=== PATIENT | female | born 1980 | race Caucasian/White ===

== ENCOUNTER 2018-01-20 21:42 | Emergency (ER) | payer BC ==
[2018-01-20] MEDS ORDERED: ZIPRASIDONE MESYLA 20 MG/VIAL IM ONE (21:47)
[2018-01-20 23:01] LABS: Urine Blood NEGATIVE (NEG); Urine Glucose NEGATIVE (NEG); Urine Protein TRACE (NEG); Urine Specific Gravity 1.015 (1.005-1.030)
[2018-01-20 23:06] LABS: Barbiturates NEGATIVE; Benzodiazepines NEGATIVE; Cocaine NEGATIVE; Opiates NEGATIVE; Phencyclidine NEGATIVE; THC Cannibis POSITIVE
[2018-01-20 23:10] LABS: Absolute Lymphocytes (CBC) 1.4 K/uL (0.7-4.9); Absolute Monocytes 0.4 K/uL (0.1-1.3); Absolute Neutrophil 2.4 K/uL (1.8-8.0); Basophils % 1.6 % (0-1.3); Eosinophils % 3.9 % (0-4.4); Hematocrit 34.8 % (36.0-45.0); Lymphocytes % 30.8 % (15.3-44.8); MCH 30.7 pg (27.0-35.0); MCV 89.3 fL (80-100); MPV 8.1 fL (7.6-11.3)
[2018-01-20 23:13] LABS: Protime INR 0.95
[2018-01-20 23:15] LABS: Bicarbonate 23 mEq/L (21-31); Glucose Level 123 mg/dL (65-120); Potassium 3.1 mEq/L (3.6-5.0); Sodium Level 139 mEq/L (135-145)
[2018-01-20 23:15] LABS: METHAMPHETAM POSITIVE (NEGATIVE)
[2018-01-20 23:20] LABS: ALT/SGPT 19 IU/L (10-60); AST/SGOT 26 IU/L (10-42); Albumin 4.4 g/dL (3.2-5.5); Alkaline Phosphatase 73 IU/L (42-121); BUN Blood Urea Nitrogen 15 mg/dL (6-20); Bilirubin Direct < 0.1 mg/dL (0-0.2); Bilirubin Total 0.3 mg/dL (0.3-1.2); Protein, Total 7.4 g/dL (6.0-8.3)
[2018-01-20 23:35] LABS: Alcohol Serum/Plasma 87 mg/dl
[2018-01-21] MEDS ORDERED: POTASSIUM CL SA 10 MEQ TAB PO ONE ×2 (03:45→03:48)
[2018-01-21] MEDS ORDERED: MAGNE/ALUM HYDROXD 30 ML UCUP ONE (07:15)
[2018-01-21] MEDS ORDERED: LIDOCAINE VISCOUS 2% SOLN 15 ML UDC ONE (07:16)
[2018-01-21] MEDS ORDERED: NICOTINE 21 MG/PAT TD ONE (07:50)
[2018-01-21] MEDS ORDERED: NA CHLORIDE 0.9% 500 ML ONE (09:02)
[2018-01-21] MEDS ORDERED: DIAZEPAM 5 MG TABLET ONE (10:10)
--- NOTE | 2018-01-21 10:57 | ER ---
Nurse's Notes [facility] Name: Promise Miller Age: 37 yrs Sex: Female : 1980 Arrival Date: 01/20/2018 Time: 21:44 Bed 18 Private MD: Diagnosis: Suicidal ideations Presentation: 01/20 21:58 Presenting complaint: EMS states: Family called EMS reported she attempted to cut ea herself with a knife, superficial scratches to neck. EMS reports pt has been drinking and had a suicide attempt last week. Transition of care: patient was not received from another setting of care. Onset of symptoms was January 20, 2018. Risk Assessment: Do you want to hurt yourself or someone else? Patient reports desire/thoughts of hurting themselves or someone else. Provider notified. Initial Sepsis Screen: Does the patient meet any 2 criteria? No. Patient's initial sepsis screen is negative. Does the patient have a suspected source of infection? No. Patient's initial sepsis screen is negative. Care prior to arrival: None. 21:58 Method Of Arrival: EMS: [facility] ea 21:58 Acuity: STEFANIA 2 ea Triage Assessment: 21:58 General: Appears uncomfortable, Behavior is agitated, anxious, crying. Pain: Unable to ea use pain scale. pt screaming, restless and anxious. Refuses to answer questions. EENT: No deficits noted. Neuro: Level of Consciousness is awake, alert, obeys commands, Oriented to person, place, time. Cardiovascular: Patient's skin is warm and dry. Respiratory: Airway is patent Respiratory effort is even, unlabored, Respiratory pattern is regular, symmetrical. GI: No deficits noted. : No deficits noted. Derm: Skin is pink, warm \\T\\ dry. Musculoskeletal: No deficits noted. Injury Description: abrasion to neck. 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 ea Historical: - Allergies: 01/20 22:17 Aspirin; ea 22:17 Macrobid; ea 22:17 Sulfa (Sulfonamide Antibiotics); ea - Home Meds: 01/21 10:58 None [Active]; jl7 - PMHx: 01/20 22:17 gastric ulcers; Kidney stones; PE; ea - PSHx: 01/21 10:58 Hysterectomy; jl7 - Immunization history:: Adult Immunizations up to date. - Ebola Screening: : No symptoms or risks identified at this time. - Social history:: Smoking status: Patient uses tobacco products, smokes one pack cigarettes per day. Screenin/04 22:19 Abuse screen: Denies threats or abuse. Nutritional screening: No deficits noted. ea Tuberculosis screening: No symptoms or risk factors identified. Fall Risk None identified. Assessment: 23:10 Reassessment: Pt calm and cooperative at this time. Pt verbalized she does not want to ea harm herself or others at this time. Pt reports she is sleepy. Respirations even and unlabored, chest expansions even and symmetrical. No s/s of pain or discomfort noted at this time. 01/21 00:45 Reassessment: Patient and/or family updated on plan of care and expected duration. Pain ea level reassessed. Pt resting with eyes closed, respirations even and unlabored, chest expansions even and symmetrical. No s/s of pain or discomfort noted at this time. 02:35 Reassessment: Patient and/or family updated on plan of care and expected duration. Pain ea level reassessed. Pt resting with eyes closed, respirations even and unlabored, chest expansions even and symmetrical. No s/s of pain or discomfort noted at this time. 03:20 Reassessment: Patient and/or family updated on plan of care and expected duration. Pain ea level reassessed. Pt resting with eyes closed, respirations even and unlabored, chest expansions even and symmetrical. No s/s of pain or discomfort noted at this time. 04:26 Reassessment: Patient and/or family updated on plan of care and expected duration. Pain ea level reassessed. Pt resting with eyes closed, respirations even and unlabored, chest expansions coty and symmetrical. 05:12 Reassessment: Patient and/or family updated on plan of care and expected duration. Pain ea level reassessed. Pt resting with eyes closed, respirations even and unlabored, chest expansions even and symmetrical. 06:47 Reassessment: Patient and/or family updated on plan of care and expected duration. Pain ea level reassessed. Pt resting with eyes closed, respirations even and unlabored, chest expansions even even and symmetrical. No s/s of pain or discomfort noted at this time. 07:00 Reassessment: Patient and/or family updated on plan of care and expected duration. Pain jl7 level reassessed. Pt reports epigastric pain, reports having a history of gastric ulcers, pain rated 7/10 at this time. Provider notified, see MAR for orders. 07:10 Reassessment: [facility] personnel at bedside. jl7 08:45 Reassessment: Pt reports urinary frequency, denies burning, provider notified and jl7 ordered a 500 NS bolus. 10:00 Reassessment: Pt states "I feel like I'm about to have a panic attack. Can y'all give jl7 me something to calm my nerves." Provider notified, see MAR for orders. 10:43 Reassessment: Nurse- to- Nurse given Anna from [facility], Anna reports she jl7 will set up doc to doc to have pt transferred. 11:50 Reassessment: EMS at bedside to transfer pt. jl7 Psych: 01/20 21:50 Objective: Patient is. Interventions: Removed personal items and placed in bag. Patient ea placed in hospital gown. Searched person for dangerous items. Urine collected and sent for urine drug test. Suicide Risk Assessment: Sad Person Scale: Sex of patient: Female: Score 0 points. Age of patient: Score 1 point if patient 15-34. Depression: Score 1 point if signs of depression are present. Previous Attempt: Score 1 point if patient has previously attempted suicide. Substance Abuse: Score 1 point if patient abuses alcohol or drugs. Rational Thinking: Score 0 point if patient has rational thinking. Social Support: Score 1 point if social support is lacking and/or unavailable. Organized Plan: Score 1 point if patient had a plan in place. Relationship: Score 0 point if patient has a spouse or domestic partner. Chronic Sickness: Score 0 point if patient does not have a chronic illness, debilitating, or severe disorder. Safety Checks: Personal items have been removed. Door is open. No visitors are present at this time. Patient uses. 21:50 Subjective: Patient's mood is irritable, Delusions are denied, Hallucinations are ea denied Having thoughts of suicide. Denies suicidal plan. Objective: Patient is uncooperative, belligerent, restless, Speech is loud, Affect is inappropriate, Patient has mutilated themselves by was reported pt used knife to cut herself. 01/21 12:04 Commitment: Patient will be a voluntary commitment. jl7 Vital Signs: 01/20 22:23 BP 150 / 90; Pulse 118; Resp 19; Pulse Ox 98% on R/A; ea 23:36 BP 146 / 71; Pulse 75; Resp 16; Temp 98.6; Pulse Ox 100% on R/A; mw2 06 02:09 BP 128 / 72; Pulse 74; Resp 16; Temp 97.9; Pulse Ox 100% on R/A; mw2 06:10 BP 133 / 81; Pulse 58; Resp 17 S; Temp 98; Pulse Ox 98% ; ea 07:30 BP 124 / 72; Pulse 68; Resp 18; Temp 98.6(O); Pulse Ox 98% on R/A; mh5 11:37 BP 122 / 74; Pulse 58; Resp 16; Temp 98.1(O); Pulse Ox 99% on R/A; mh5 ED Course: 01/20 21:44 Patient arrived in ED. am2 21:44 Patient has correct armband on for positive identification. Placed in gown. Bed in low ea position. Call light in reach. Side rails up X2. 22:00 Inserted saline lock: 22 gauge in left forearm, using aseptic technique. Blood ea collected. 22:05 Jailyn Pritchett RN is Primary Nurse. ea 22:14 Yahir Thacker NP is PHCP. pm1 22:14 William Santo MD is Attending Physician. pm1 22:16 Triage completed. ea 22:26 Arm band placed on right wrist. ea 23:25 Safety checks: Items removed: yes. Door open/sign placed on door: yes. Family/friend mw2 present: no. 23:40 Safety checks: Items removed: yes. Door open/sign placed on door: yes. Family/friend mw2 present: no. 23:55 Safety checks: Items removed: yes. Door open/sign placed on door: yes. Family/friend mw2 present: no. 01/21 00:15 Safety checks: Items removed: yes. Door open/sign placed on door: yes. Family/friend mw2 present: no. 00:30 Safety checks: Items removed: yes. Door open/sign placed on door: yes. Family/friend mw2 present: no. 00:45 Safety checks: Items removed: yes. Door open/sign placed on door: yes. Family/friend mw2 present: no. 01:02 Safety checks: Items removed: yes. Door open/sign placed on door: yes. Family/friend mw2 present: no. 01:17 Safety checks: Items removed: yes. Door open/sign placed on door: yes. Family/friend mw2 present: no. 01:38 Safety checks: Items removed: yes. Door open/sign placed on door: yes. Family/friend mw2 present: no. 01:53 Safety checks: Items removed: yes. Door open/sign placed on door: yes. Family/friend mw2 present: no. 02:08 Safety checks: Items removed: yes. Door open/sign placed on door: yes. Family/friend mw2 present: no. 02:23 Safety checks: Items removed: yes. Door open/sign placed on door: yes. Family/friend mw2 present: no. 02:38 Safety checks: Items removed: yes. Door open/sign placed on door: yes. Family/friend mw2 present: no. 02:53 Safety checks: Items removed: yes. Door open/sign placed on door: yes. Family/friend mw2 present: no. 03:07 Safety checks: Items removed: yes. Door open/sign placed on door: yes. Family/friend mw2 present: no. 03:17 [facility] notified[facility] 03:22 Safety checks: Items removed: yes. Door open/sign placed on door: yes. Family/friend mw2 present: no. 03:37 Safety checks: Items removed: yes. Door open/sign placed on door: yes. Family/friend mw2 present: no. 03:52 Safety checks: Items removed: yes. Door open/sign placed on door: yes. Family/friend mw2 present: no. 04:07 Safety checks: Items removed: yes. Door open/sign placed on door: yes. Family/friend mw2 present: no. 04:20 Safety checks: Items removed: yes. Door open/sign placed on door: yes. Family/friend mw2 present: no. 04:35 Safety checks: Items removed: yes. Door open/sign placed on door: yes. Family/friend mw2 present: no. 04:47 Safety checks: Items removed: yes. Door open/sign placed on door: yes. Family/friend mw2 present: no. 05:02 Safety checks: Items removed: yes. Door open/sign placed on door: yes. Family/friend mw2 present: no. 05:17 Safety checks: Items removed: yes. Door open/sign placed on door: yes. Family/friend mw2 present: no. 05:32 Safety checks: Items removed: yes. Door open/sign placed on door: yes. Family/friend mw2 present: no. 05:46 Safety checks: Items removed: yes. Door open/sign placed on door: yes. Family/friend mw2 present: no. 07:00 Safety checks: Items removed: yes. Door open/sign placed on door: yes. Family/friend mh5 present: no. 07:04 Report given to Syeda LUIS ea 07:15 Safety Checks: Personal items have been removed. The door is open or patient has been jl7 placed in a hallway bed/chair. A family member and/or friend is present and encouraged to stay. [facility] personnel at bedside Sitter present at this time. 07:30 Safety checks: Items removed: yes. Door open/sign placed on door: yes. Family/friend mh5 present: no. 07:45 Safety checks: Items removed: yes. Door open/sign placed on door: yes. Family/friend mh5 present: no. 08:00 Safety checks: Items removed: yes. Door open/sign placed on door: yes. Family/friend mh5 present: no. 08:15 Safety checks: Items removed: yes. Door open/sign placed on door: yes. Family/friend mh5 present: no. 08:30 Safety checks: Items removed: yes. Door open/sign placed on door: yes. Family/friend mh5 present: no. 08:45 Safety checks: Items removed: yes. Door open/sign placed on door: yes. Family/friend mh5 present: no. 09:00 Safety checks: Items removed: no. Reason for not removing items: Door open/sign placed mh5 on door: yes. Family/friend present: no. 09:15 Safety checks: Items removed: yes. Door open/sign placed on door: yes. Family/friend mh5 present: no. 09:30 Safety checks: Items removed: yes. Door open/sign placed on door: yes. Family/friend mh5 present: no. 09:45 Safety checks: Items removed: yes. Door open/sign placed on door: yes. Family/friend mh5 present: no. 10:00 Safety checks: Items removed: yes. Door open/sign placed on door: yes. Family/friend mh5 present: no. 10:15 Safety checks: Items removed: yes. Door open/sign placed on door: yes. Family/friend mh5 present: no. 10:30 Safety checks: Items removed: yes. Door open/sign placed on door: yes. Family/friend mh5 present: no. 10:44 nurse to nurse done with [facility]. bd 10:45 Safety checks: Items removed: yes. Door open/sign placed on door: yes. Family/friend mh5 present: no. 10:56 Attending Physician role handed off by William Santo MD rn 10:56 Alhaji King MD is Attending Physician. rn 11:00 Safety checks: Items removed: yes. Door open/sign placed on door: yes. Family/friend mh5 present: no. 11:15 Safety checks: Items removed: yes. Door open/sign placed on door: yes. Family/friend mh5 present: no. 11:30 Safety checks: Items removed: yes. Door open/sign placed on door: yes. Family/friend mh5 present: no. 11:45 Safety checks: Items removed: yes. Door open/sign placed on door: yes. Family/friend mh5 present: no. 12:04 No provider procedures requiring assistance completed. IV discontinued, intact, jl7 bleeding controlled, No redness/swelling at site. Pressure dressing applied. Administered Medications: 01/20 22:00 Drug: Geodon 10 mg Route: IM; Site: right deltoid; ea 22:41 Follow up: Response: No adverse reaction; Marked relief of symptoms ea 01/21 04:16 Drug: Potassium Chloride 40 mEq Route: PO; ea 07:16 Follow up: Response: No adverse reaction jl7 07:30 Drug: GI Cocktail without - (Maalox Suspension 30 ml, Lidocaine Liquid 2 % 15 jl7 ml) Route: PO; 08:00 Follow up: Response: No adverse reaction; Pain is decreased jl7 07:59 Drug: Nicoderm CQ 21 mg/24 hr 1 patches Route: Transdermal; Site: affected area; jl7 12:03 Follow up: Response: No adverse reaction jl7 09:00 Drug: NS 0.9% 500 ml Route: IV; Rate: bolus; Site: left forearm; jl7 09:45 Follow up: Response: No adverse reaction; IV Status: Completed infusion jl7 10:16 Drug: Valium 5 mg Route: PO; jl7 11:15 Follow up: Response: No adverse reaction; Marked relief of symptoms jl7 Outcome: 10:57 ER care complete, transfer ordered by . rn 12:03 Transferred by ground EMS to other acute care facility, Transfer form completed. Note: [address] [facility] 12:03 Condition: stable 12:03 Discharge instructions given to patient, Instructed on the need for transfer, Demonstrated understanding of instructions. 12:04 Patient left the ED. [facility] Signatures: Diya Oleary Rayburn rg2 Alhaji King MD MD rn Marinas, Patrick, NP [employer]QU[employer]UTTER pm1 Alissa العراقي 5 Syeda Parra RN RN jl7 Moreno, Amanda am2 Antunez, Elena, RN RN ea Westbrook, MyKena mw2 Corrections: (The following items were deleted from the chart) 01/20 22:16 21:58 Presenting complaint: ea ea 01/21 01:00 00:59 Safety checks: Items removed: yes. Door open/sign placed on door: yes. mw2 Family/friend present: no. mw2 07:42 07:41 BP 124 / 72; Pulse 68bpm; Resp 18bpm; Pulse Ox 98% RA; Temp 98.6F Oral; mh5 mh5
--- NOTE | 2018-01-21 10:57 | EDPHYS ---
Physician Documentation [facility] Name: Promise Miller Age: 37 yrs Sex: Female : 1980 Arrival Date: 01/20/2018 Time: 21:44 Bed 18 Private MD: ED Physician Alhaji King HPI: 01/21 02:18 This 37 yrs old Female presents to ER via EMS with complaints of Suicidal tw4 Ideation. 02:18 The patient presents to the emergency department with suicide ideation, and the patient tw4 has a plan, to cut oneself and bleed. Onset: The symptoms/episode began/occurred today. Associated signs and symptoms: The patient has no apparent associated signs or symptoms. Severity of symptoms: At their worst the symptoms were moderate in the emergency department the symptoms are unchanged. Unable to obtain HPI due to patient is being uncooperative. 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 ea Historical: - Allergies: 01/20 22:17 Aspirin; ea 22:17 Macrobid; ea 22:17 Sulfa (Sulfonamide Antibiotics); ea - Home Meds: 01/21 10:58 None [Active]; jl7 - PMHx: 01/20 22:17 gastric ulcers; Kidney stones; PE; ea - PSHx: 01/21 10:58 Hysterectomy; jl7 - Immunization history:: Adult Immunizations up to date. - Ebola Screening: : No symptoms or risks identified at this time. - Social history:: Smoking status: Patient uses tobacco products, smokes one pack cigarettes per day. ROS: 02:18 Constitutional: Negative for fever, chills, and weight loss, Cardiovascular: Negative tw4 for chest pain, palpitations, and edema, Respiratory: Negative for shortness of breath, cough, wheezing, and pleuritic chest pain, Abdomen/GI: Negative for abdominal pain, nausea, vomiting, diarrhea, and constipation, Back: Negative for injury and pain, Skin: Negative for injury, rash, and discoloration, Neuro: Negative for headache, weakness, numbness, tingling, and seizure. 02:20 Psych: Positive for drug dependence, suicidal ideation. tw4 Exam: 02:20 Head/Face: Normocephalic, atraumatic. Chest/axilla: Normal chest wall appearance and tw4 motion. Nontender with no deformity. No lesions are appreciated. Cardiovascular: Regular rate and rhythm with a normal S1 and S2. No gallops, murmurs, or rubs. Normal PMI, no JVD. No pulse deficits. Respiratory: Lungs have equal breath sounds bilaterally, clear to auscultation and percussion. No rales, rhonchi or wheezes noted. No increased work of breathing, no retractions or nasal flaring. MS/ Extremity: Pulses equal, no cyanosis. Neurovascular intact. Full, normal range of motion. Neuro: Awake and alert, GCS 15, oriented to person, place, time, and situation. Cranial nerves II-XII grossly intact. Motor strength 5/5 in all extremities. Sensory grossly intact. Cerebellar exam normal. Normal gait. 02:20 Constitutional: The patient appears agitated, unkempt. 02:20 Neck: External neck: abrasion(s), superficial, of the thyroid cartilage, left aspect of thyroid and left sternocleidomastoid. Vital Signs: 01/20 22:23 BP 150 / 90; Pulse 118; Resp 19; Pulse Ox 98% on R/A; ea 23:36 BP 146 / 71; Pulse 75; Resp 16; Temp 98.6; Pulse Ox 100% on R/A; mw2 01/21 02:09 BP 128 / 72; Pulse 74; Resp 16; Temp 97.9; Pulse Ox 100% on R/A; mw2 06:10 BP 133 / 81; Pulse 58; Resp 17 S; Temp 98; Pulse Ox 98% ; ea 07:30 BP 124 / 72; Pulse 68; Resp 18; Temp 98.6(O); Pulse Ox 98% on R/A; mh5 11:37 BP 122 / 74; Pulse 58; Resp 16; Temp 98.1(O); Pulse Ox 99% on R/A; mh5 MDM: 01/20 22:14 Patient medically screened. pm1 01/21 10:56 Differential diagnosis: depression, suicidal ideation. rn 10:56 Data reviewed: vital signs, nurses notes, lab test result(s), EKG, and as a result, I rn will admit patient. Counseling: I had a detailed discussion with the patient and/or guardian regarding: the historical points, exam findings, and any diagnostic results supporting the discharge/admit diagnosis, lab results, the need to transfer to another facility. ED course: Accepted for transfer to [facility] by Dr. Ellis.. 01/20 22:14 Order name: Acetaminophen; Complete Time: 07:12 pm01/20 22:14 Order name: Basic Metabolic Panel; Complete Time: 07:12 pm01/20 22:14 Order name: CBC with Diff; Complete Time: 07:12 pm01/20 22:14 Order name: ETOH Level; Complete Time: 07:12 pm01/20 22:14 Order name: Hepatic Function; Complete Time: 07:12 pm01/20 22:14 Order name: PT-INR; Complete Time: 07:12 pm01/20 22:14 Order name: Ptt, Activated; Complete Time: 07:12 pm01/20 22:14 Order name: Salicylate; Complete Time: 07:12 pm01/20 22:14 Order name: Urine Drug Screen; Complete Time: 07:12 pm01/20 22:28 Order name: Urine Dipstick--Ancillary (enter results); Complete Time: 07:12 rg01/20 22:28 Order name: Urine --Ancillary (enter results); Complete Time: 07:12 rg01/21 07:44 Order name: Potassium; Complete Time: 10:07 01/20 22:14 Order name: Urine Test (obtain specimen); Complete Time: 22:31 pm01/20 22:14 Order name: EKG; Complete Time: 22:15 pm01/20 22:14 Order name: EKG - Nurse/Tech; Complete Time: 00:06 pm01/20 22:14 Order name: IV Saline Lock; Complete Time: 22:42 pm01/20 22:14 Order name: Labs collected and sent; Complete Time: 22:42 pm01/20 22:14 Order name: Urine Dipstick-Ancillary (obtain specimen); Complete Time: 22:31 pm01/21 07:18 Order name: Diet Regular; Complete Time: 07:18 rg01/21 07:48 Order name: Diet Finger Food; Complete Time: 07:49 mh5 Administered Medications: 01/20 22:00 Drug: Geodon 10 mg Route: IM; Site: right deltoid; ea 22:41 Follow up: Response: No adverse reaction; Marked relief of symptoms ea 01/21 04:16 Drug: Potassium Chloride 40 mEq Route: PO; ea 07:16 Follow up: Response: No adverse reaction jl7 07:30 Drug: GI Cocktail without - (Maalox Suspension 30 ml, Lidocaine Liquid 2 % 15 jl7 ml) Route: PO; 08:00 Follow up: Response: No adverse reaction; Pain is decreased jl7 07:59 Drug: Nicoderm CQ 21 mg/24 hr 1 patches Route: Transdermal; Site: affected area; jl7 12:03 Follow up: Response: No adverse reaction 09:00 Drug: NS 0.9% 500 ml Route: IV; Rate: bolus; Site: left forearm; jl7 09:45 Follow up: Response: No adverse reaction; IV Status: Completed infusion 10:16 Drug: Valium 5 mg Route: PO; jl7 11:15 Follow up: Response: No adverse reaction; Marked relief of symptoms jl7 Disposition: 01/21/18 10:57 Transfer ordered to Psych Facility. Diagnosis is Suicidal ideations. - Reason for transfer: Higher level of care. - Accepting physician is Dr. Ellis. - Condition is Stable. - Problem is new. - Symptoms are unchanged. Addendum: 01/24/2018 07:49 Co-signature as Attending Physician, Kyaw Kirkland MD I agree with the assessment and c brambila plan of care. Signatures: Dispatcher [employer] Kyaw Escobar MD MD cha Nieto, Roman, MD MD rn Marinas, Patrick, HIGHWAY RESEARCH ENGINEER HIGHWAY RESEARCH ENGINEER pm1 Syeda Parra RN RN jl7 Jailyn Pritchett RN RN ea Wadley, Terrence, MD MD tw4 Corrections: (The following items were deleted from the chart) 01/21 12:04 10:57 01/21/2018 10:57 Transfer ordered to Psych Facility. Diagnosis is Suicidal jl7 ideations. Reason for transfer: Higher level of care. Accepting physician is Dr. Ellis. Condition is Stable. Problem is new. Symptoms are unchanged. rn
--- NOTE | 2018-01-21 13:43 | EKG ---
Test Date: 2018-01-20 Test Time: 23:17:23 Medical Device Sales: HERNESTO MEASUREMENT RESULTS: Intervals: Rate: 76 MS: 128 QRSD: 78 QT: 386 QTc: 434 Divide: P: 84 MS: 128 QRS: 69 T: 51 INTERPRETIVE STATEMENTS: Normal sinus rhythm Normal ECG Compared to ECG 01/14/2017 16:24:54 No significant changes Electronically Signed On 01-21-18 13:40:54 CDT by Elbert De Paz
== END 2018-01-21 12:04 ==
LOC: ER 21:42
DX: R45.851 Suicidal ideations (principal); F17.210 Nicotine dependence, cigarettes, uncomplicated; Z88.6 Allergy status to analgesic agent; Z88.3 Allergy status to other anti-infective agents; Z88.2 Allergy status to sulfonamides
CPT/HCPCS: 36415; 80048; 80076; 80307; 80320; 80329; 81003; 81025; 84132; 85025; 85610; 85730; 93005; 96360; 96372; 99285; J3486